=== PATIENT | female | born 1970 | race Caucasian/White ===

== ENCOUNTER 2016-10-07 11:12 | Emergency (ER) | payer OTHER ==
[~2016-10-07] VITALS: Ht 160 cm; Wt 92.7 kg
[~2016-10-07 11:12] MED LIST: PREDNISONE10 MG PO; SINGULAIR 110 MG/TAB PO; ZYRTEC10 MG PO; [UNRECOGNIZED DRUG - OTHER] PO
[2016-10-07] MEDS ORDERED: NORCO 325 MG-51 TA1 PO (13:59)
[2016-10-07] MEDS ORDERED: CLINDAMYCIN 300MG PO (13:59)
[2016-10-07 14:41] VITALS: BP 120/78
== END 2016-10-07 14:41 | disposition home or self-care (01) ==
LOC: ED 11:12
DX: K04.7 Periapical abscess without sinus (principal); K08.89 Other specified disorders of teeth and supporting structures; Z98.818 Other dental procedure status
CPT/HCPCS: J3490; Q9967

== ENCOUNTER 2020-07-24 16:18 | Emergency (ER) | payer OTHER ==
[~2020-07-24 16:18] MED LIST changes: +CLINDAMYCIN 300MG PO; +NORCO 325 MG-51 TA1 PO
[2020-07-24] MEDS ORDERED: PROAIR HFA0.09 MG/AC IH (17:12)
[2020-07-24 17:41] LABS: BASO # 0.05 (0.02-0.10); HEMATOCRIT 40.8 % (37.0-47.0); HEMOGLOBIN 13.8 g/dL (12.5-16.0); LYMPH# 0.96 (1.50-4.00); MEAN CELL VOLUME 93 fl (78-100); MEAN CORPUSCULAR HEMOGLOBIN 32 pg (27-31); MEAN CORPUSCULAR HGB CONC 34 g/dL (33-37); MEAN PLATELET VOLUME 9.7 fl (7.4-10.4); MONO # 0.55 (0.20-0.80); NEU # 7.31 (1.40-6.50); PLATELET COUNT 337 K/mm3 (130-400); RED BLOOD COUNT 4.38 M/mm3 (4.10-5.30); RED CELL DISTRIBUTION WIDTH 12.2 % (11.5-14.5); WHITE BLOOD COUNT 8.9 K/mm3 (4.8-10.8)
[2020-07-24 17:49] LABS: ALBUMIN 4.2 g/dL (3.5-5.0); SODIUM 137 mmol/L (136-145)
[2020-07-24 17:51] LABS: CALCIUM 9.3 mg/dL (8.3-10.5)
[2020-07-24 17:52] LABS: GLUCOSE 133 mg/dL (65-105); TOTAL PROTEIN 7.6 g/dL (6.4-8.3)
[2020-07-24 17:53] LABS: CARBON DIOXIDE 19 mmol/L (22-29)
[2020-07-24 17:54] LABS: TOTAL BILIRUBIN 0.7 mg/dL (0.2-1.2)
[2020-07-24 17:57] LABS: AST-SGOT 27 U/L (5-34)
[2020-07-24 17:59] LABS: ALT/SGPT 30 U/L (0-55)
[2020-07-24 18:10] LABS: URINE APPEARANCE CLEAR; URINE BILIRUBIN NEGATIVE (NEGATIVE); URINE BLOOD NEGATIVE (NEGATIVE); URINE COLOR LIGHT YELLOW; URINE GLUCOSE NEGATIVE (NEGATIVE); URINE KETONE 1+ (NEGATIVE); URINE LEUKOCYTE ESTERASE NEGATIVE (NEGATIVE); URINE NITRATE NEGATIVE (NEGATIVE); URINE PROTEIN(semi-quant) NEGATIVE (NEGATIVE); URINE UROBILINOGEN NORMAL (NORMAL); URINE WBC 0-1 /hpf (0-3)
[2020-07-24 18:11] LABS: ACETAMINOPHEN < 1 ug/mL; ALCOHOL IN-HOUSE < 10 mg/dL (<10)
[2020-07-24 20:31] VITALS: BP 167/102
== END 2020-07-24 20:31 | disposition home or self-care (01) ==
LOC: ED 16:18
PROVIDERS: Nurse Practitioner
DX: F10.251 Alcohol dependence with alcohol-induced psychotic disorder with hallucinations (principal); F19.20 Other psychoactive substance dependence, uncomplicated; F22 Delusional disorders; Z20.822 Contact with and (suspected) exposure to COVID-19; Z32.02 Encounter for pregnancy test, result negative; Z88.6 Allergy status to analgesic agent; Z88.8 Allergy status to other drugs, medicaments and biological substances; Z79.899 Other long term (current) drug therapy